=== PATIENT | male | born 1990 | race Caucasian/White ===

== ENCOUNTER 2017-11-29 05:45 | Emergency (ER) | payer BC ==
[2017-11-29] MEDS ORDERED: Cephalexin 500 MG Cap PO ONE (06:03)
[2017-11-29] MEDS ORDERED: Diphtheria,Pertussis(Acell),Tetanus Vaccine 0.5 ML Syringe IM ONE (06:03)
[2017-11-29] MEDS ORDERED: Silver Sulfadiazine 1% Crm 50 GM Tube TOP ONE (06:03)
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
[2017-11-29] MEDS ORDERED: Ketorolac 60 MG/2 ML SDV IM ONE (06:23)
== END 2017-11-29 06:50 | disposition home or self-care (01) ==
LOC: MW.ED 05:45
DX: S20.412A Abrasion of left back wall of thorax, initial encounter (principal); S30.810A Abrasion of lower back and pelvis, initial encounter; S80.211A Abrasion, right knee, initial encounter; S90.511A Abrasion, right ankle, initial encounter; S90.811A Abrasion, right foot, initial encounter; F17.210 Nicotine dependence, cigarettes, uncomplicated; Z23 Encounter for immunization; V86.56XA Driver of dirt bike or motor/cross bike injured in nontraffic accident, initial encounter
CPT/HCPCS: 90471; 90715; 96372; 99283; A9270; J1885

== ENCOUNTER 2017-11-30 15:37 | Emergency (ER) | payer BC ==
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
== END 2017-11-30 16:15 | disposition home or self-care (01) ==
LOC: MW.ED 15:37
DX: S40.212A Abrasion of left shoulder, initial encounter (principal); S40.812A Abrasion of left upper arm, initial encounter; S80.812A Abrasion, left lower leg, initial encounter; S30.811A Abrasion of abdominal wall, initial encounter; F17.210 Nicotine dependence, cigarettes, uncomplicated; V29.9XXA Motorcycle rider (driver) (passenger) injured in unspecified traffic accident, initial encounter
CPT/HCPCS: 99283

== ENCOUNTER 2017-12-05 14:49 | Emergency (ER) | payer BC ==
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
== END 2017-12-05 16:01 | disposition home or self-care (01) ==
LOC: MW.ED 14:49
DX: S40.812A Abrasion of left upper arm, initial encounter (principal); S80.811A Abrasion, right lower leg, initial encounter; S20.419A Abrasion of unspecified back wall of thorax, initial encounter; X58.XXXA Exposure to other specified factors, initial encounter
CPT/HCPCS: 99281

== ENCOUNTER 2020-11-17 17:40 | Emergency (ER) | payer BC, OTHER ==
[2020-11-17] MEDS ORDERED: ceFAZolin 1 GM Vial IM ONE (17:50)
[2020-11-17] MEDS ORDERED: Morphine 4 MG/ML Syringe IM ONE (17:53)
[2020-11-17] MEDS ORDERED: Water For Injection, Sterile 20 ML SDV INJECT ONE (18:00)
[2020-11-17] MEDS ORDERED: Sodium Chloride 0.9% 1,000 ML IV ONE (18:06)
--- NOTE | 2020-11-17 18:19 | EDM.PDOC ---
ED HPI GENERAL MEDICAL PROBLEM - General Chief Complaint: Laceration Stated Complaint: SMASEHED FINGERS RIGHT HAND Time Seen by Provider: 11/17/20 17:46 - History of Present Illness INITIAL COMMENTS - FREE TEXT/NARRATIVE: 30-year-old male presents complaining of right middle finger injury. The patient slammed it between concrete in the bucket of heavy machinery equipment. Moderate pain worse with movement. There is an avulsion of the distal part of his finger. Patient denies any numbness and is unclear whether or not there is weakness versus pain and not wanting to move his finger Right Finger-Middle Pain Score (Numeric/FACES): 10 - Related Data Allergies Allergy/AdvReac Type Severity Reaction Status Date / Time No Known Allergies Allergy Verified 11/17/20 17:46 Home Meds: Home Meds . [No Known Home Meds] 11/17/20 [History] Past Medical History - Past Health History Medical/Surgical History: Denies Medical/Surgical History Musculoskeletal History: Reports: None - Infectious Disease History Infectious Disease History: Reports: None - Past Surgical History Musculoskeletal Surgical History: Reports: Other (See Below) Other Musculoskeletal Surgeries/Procedures:: tamiko to left arm Social & Family History - Family History Family Medical History: No Pertinent Family History - Tobacco Use Tobacco Use Status *Q: Never Tobacco User - Caffeine Use Caffeine Use: Reports: None - Recreational Drug Use Recreational Drug Use: No ED ROS GENERAL - Review of Systems Review Of Systems: See Below Musculoskeletal: Reports: Joint Pain Skin: Reports: Other (Laceration) Neurological: Denies: Numbness ED EXAM, SKIN/RASH Exam: See Below Text/Narrative:: CONSTITUTIONAL: well appearing in no acute distress SKIN: There is distal fingertip avulsion approximately chcf down the right middle phalanx. There is further laceration dorsally with still some nailbed remaining. On the ventral side there is a large split in the skin and laceration that is open down to about the PIP. There is obvious bone exposure not enough tissue for me to be able to cover this up. Patient does have some flexion of the distal phalanx but he is in a lot of pain so it is difficult to discern whether or not there is tendon involvement on this cursory look. Patient has significant pain and sensation certainly appears intact HENT: Normocephalic, atraumatic, NECK: normal range of motion PULMONARY: normal chest rise and fall, no respiratory distress or stridor NEUROLOGIC: normal speech, moves all extremities, grossly non-focal MUSCULOSKELETAL: no gross deformities, atraumatic PSYCHIATRIC: normal mood and affect Course - Vital Signs Text/Narrative:: Patient with injury to the right middle finger as outlined in the physical exam. There is protruding bone that will need to be roungered. There is quite possibly a flexor tendon injury as well but I did not want to cause the patient additional pain and I already have enough information that he will need hand surgery since I do not perform roungering. I did contact orthopedic on-call Dr. Oswaldo Jones. He recommended transfer. Patient was irrigated given pain medications, Ancef and x-ray was done. Patient requested IV fluids because he is sweating outside a lot this was also done. Tetanus is up-to-date. Patient t ransferred for higher level of care, hand surgery Last Recorded V/S: Last Vital Signs Temp 36.6 C 11/17/20 17:46 Pulse 107 H 11/17/20 17:46 Resp 20 11/17/20 17:46 BP 135/95 H 11/17/20 17:46 Pulse Ox 98 11/17/20 17:46 - Orders/Labs/Meds Orders: Active Orders 24 hr Category Date Time Status Hand 2V Rt [CR] Stat Exams 11/17/20 17:53 Ordered Sodium Chloride 0.9% [Normal Saline] 1,000 ml Med 11/17/20 18:06 Active IV .BOLUS Medication Orders Sodium Chloride (Normal Saline) 1,000 mls @ 999 mls/hr IV .BOLUS ONE Stop: 11/17/20 19:06 Last Admin: 11/17/20 18:11 Dose: 999 mls/hr Documented by: JAREN Meds: Medications Generic Name Dose Route Start Last Admin Trade Name Freq PRN Reason Stop Dose Admin Sodium Chloride 1,000 mls @ 999 mls/hr 11/17/20 18:06 11/17/20 18:11 Normal Saline IV 11/17/20 19:06 999 mls/hr .BOLUS ONE Administration Discontinued Medications Generic Name Dose Route Start Last Admin Trade Name Freq PRN Reason Stop Dose Admin Cefazolin Sodium 1 gm 11/17/20 17:50 11/17/20 18:08 Cefazolin 1 Gm Vial IM 11/17/20 17:51 1 gm ONETIME ONE Administration Morphine Sulfate 4 mg 11/17/20 17:53 11/17/20 18:09 Morphine 4 Mg/Ml Syringe IM 11/17/20 17:54 4 mg ONETIME ONE Administration Sterile Water 20 ml 11/17/20 18:00 11/17/20 18:09 Water For Injection, Sterile 20 Ml Sdv INJECT 11/17/20 18:01 20 ml ONETIME ONE Administration Departure - Departure Time of Disposition: 18:24 Disposition: DC/Tfer to Acute Hospital 02 Condition: Good Clinical Impression: Open avulsion fracture of distal phalanx of finger - Discharge Information Referrals: PCP,None [Primary Care Provider] - Forms: ED Department Discharge Sepsis Event Note (ED) - Evaluation Sepsis Screening Result: No Definite Risk - Focused Exam Vital Signs: Vital Signs Temp Pulse Resp BP Pulse Ox 11/17/20 17:46 36.6 C 107 H 20 135/95 H 98 - My Orders Last 24 Hours: My Active Orders 11/17/20 17:53 Hand 2V Rt [CR] Stat 11/17/20 18:06 Sodium Chloride 0.9% [Normal Saline] 1,000 ml IV .BOLUS - Assessment/Plan Last 24 Hours: My Active Orders 11/17/20 17:53 Hand 2V Rt [CR] Stat 11/17/20 18:06 Sodium Chloride 0.9% [Normal Saline] 1,000 ml IV .BOLUS
--- NOTE | 2020-11-17 19:15 | CR ---
Indication: Crush injury Technique: Two views right hand Comparison: None Findings/impression: There is soft tissue disruption of the distal 3rd finger tip with the comminuted, intra-articular fracture of the 3rd distal phalanx. Remainder of the osseous structures appear intact. Dictated by Sandhya Hoskins MD @ 11/17/2020 7:13:[address] Sandhya Hoskins @ Nov 17 2020 7:13PM
== END 2020-11-17 18:52 ==
LOC: MW.ED 17:40
DX: S62.622B Displaced fracture of middle phalanx of right middle finger, initial encounter for open fracture (principal); W22.09XA Striking against other stationary object, initial encounter
CPT/HCPCS: 64450; 73120; 96372; 96374; 99284; J0690; J2270; J7030